=== PATIENT | female | born 1995 | race Hispanic/Latino ===

== ENCOUNTER 2022-02-28 16:48 | Inpatient (IN) | payer MEDICAID, SELFPAY ==
[~2022-02-28 16:48] MED LIST: Bupivacaine/Epinephrine 0.25% 30 ML VIAL ONE; ePHEDrine Sulfate 50 MG/10 ML VIAL ONE
[2022-02-28] MEDS ORDERED: hydrALAZINE 20 MG/ML VIAL SLOW IVP PRN ×2 (17:41→19:38)
[2022-02-28] MEDS ORDERED: Docusate 100 MG CAP PO PRN (19:38)
[2022-02-28] MEDS ORDERED: Ondansetron PF 4 MG/2 ML Vial IVP PRN (19:38)
[2022-02-28] MEDS ORDERED: Lidocaine 1% (PF) 30 ML VIAL SC PRN (19:38)
[2022-02-28] MEDS ORDERED: Ibuprofen 800 MG TAB PO PRN (19:38)
[2022-02-28] MEDS ORDERED: Promethazine HCl 25 MG/ML VIAL IM PRN (19:38)
[2022-02-28] MEDS ORDERED: Misoprostol 200 MCG TAB PR PRN (19:38)
[2022-02-28] MEDS ORDERED: NS w/ Oxytocin 30 units 500 ML IV SCH ×2 (21:00)
[2022-02-28 21:05] LABS: Hemoglobin 12.2 g/dL (12.0-15.5); Mean Corpuscular HGB CONC 34.2 g/dL (32.0-36.0); Mean Corpuscular Hemoglobin 28.7 pg (27.0-33.0); Mean Platelet Volume 10.6 fl (7.4-10.4); Platelet Count 178 10x3/uL (150-450); RBC Distribution Width 14.7 % (11.5-14.5); Red Blood Cell (RBC) Count 4.25 10x6/uL (3.90-5.03); White Blood Cell (WBC) Count 10.8 10x3/uL (3.5-10.5)
[2022-02-28] MEDS: Misoprostol 100 MCG TAB VAG SCH (21:19)
[2022-02-28 22:02] LABS: SARS-CoV-2 NAA Rapid Test Not Detected (NotDetected); Syphilis Antibody Nonreactive (Nonreactive); Syphilis Antibody Index 0.05 S/CO (<1.00 Non-Reactive)
[2022-02-28 22:03] LABS: HBSAg Index 0.16 S/CO (0-0.99); Hep B Surf Ag Non-Reactive S/CO (NonReactive)
[2022-03-01] MEDS ORDERED: Fentanyl 2 mcg/Bup 0.1% Cadd 100 ML ONE (02:02)
[2022-03-01] MEDS ORDERED: Moisturizing Cream (Eucerin) 113 GM JAR TOP PRN (02:57)
[2022-03-01] MEDS ORDERED: diphenhydrAMINE 50 MG/ML VIAL IVP PRN (02:57)
[2022-03-01] MEDS ORDERED: Ondansetron PF 4 MG/2 ML Vial IVP PRN ×2 (02:57→10:00)
[2022-03-01] MEDS ORDERED: Promethazine HCl 25 MG/ML VIAL IM PRN (02:57)
[2022-03-01] MEDS ORDERED: Naloxone HCl 0.4 mg/ml Vial IVP PRN ×2 (02:57)
[2022-03-01] MEDS ORDERED: Lactated Ringer's 500 ML IV PRN (02:57)
[2022-03-01] MEDS ORDERED: Acetaminophen 325 MG TAB PO PRN (02:57)
[2022-03-01] MEDS ORDERED: Fentanyl 2 mcg/Bupivacaine 0.1% Cassette 100 ML EPIDURAL SCH (03:00)
[2022-03-01] MEDS ORDERED: Communication Order-Pharmacy FS SCH (03:00)
[2022-03-01] MEDS: ePHEDrine Sulfate 50 MG/10 ML VIAL SLOW IVP PRN ×2 (03:30→03:55)
[2022-03-01] MEDS ORDERED: Lanolin Ointment 7 GM TUBE TOP PRN (10:00)
[2022-03-01] MEDS ORDERED: Bisacodyl 10 MG SUPP PR PRN (10:00)
[2022-03-01] MEDS ORDERED: Misoprostol 200 MCG TAB VAG PRN (10:00)
[2022-03-01] MEDS ORDERED: Boostrix 0.5 ML (Tdap) VIAL (>/=7 yrs of age) IM ONE (10:00)
[2022-03-01] MEDS ORDERED: Milk Of Magnesia 30 ML UDCUP PO PRN (10:00)
[2022-03-01] MEDS ORDERED: NS w/ Oxytocin 30 units 500 ML IV SCH (10:00)
[2022-03-01] MEDS ORDERED: Preparation H Ointment 28 GM TUBE PR PRN (10:00)
[2022-03-01] MEDS ORDERED: Benzocaine-Menthol 82.5 ML CAN TOP PRN (10:00)
[2022-03-01] MEDS ORDERED: hydrALAZINE 20 MG/ML VIAL SLOW IVP PRN (10:00)
[2022-03-01] MEDS ORDERED: diphenhydrAMINE 25 MG CAP PO PRN (10:00)
[2022-03-01] MEDS ORDERED: Methylergonovine 0.2 MG/ML VIAL IM PRN (10:00)
[2022-03-01] MEDS ORDERED: Ferrous Sulfate 325 MG TAB PO SCH (10:15)
[2022-03-01] MEDS ORDERED: Prenatal Vitamin 1 TAB PO SCH (10:15)
[2022-03-01] MEDS ORDERED: Docusate 100 MG CAP PO SCH (10:15)
[2022-03-01] MEDS: Ibuprofen 800 MG TAB PO SCH ×2 (13:25→22:12)
[2022-03-01] MEDS: Prenatal Vitamin 1 TAB PO SCH (13:25)
[2022-03-01] MEDS: Ferrous Sulfate 325 MG TAB PO SCH (16:48)
[2022-03-01] MEDS: Docusate 100 MG CAP PO SCH (22:11)
[2022-03-01] MEDS: Misoprostol 100 MCG TAB VAG SCH (22:39)
[2022-03-02] MEDS: Ibuprofen 800 MG TAB PO SCH ×3 (05:08→21:59)
[2022-03-02] MEDS: Docusate 100 MG CAP PO SCH ×2 (08:34→21:59)
[2022-03-02] MEDS: Ferrous Sulfate 325 MG TAB PO SCH ×2 (11:05→17:46)
[2022-03-02 12:09] VITALS: BMI 23.8
[2022-03-03] MEDS: Ibuprofen 800 MG TAB PO SCH ×2 (04:57→13:47)
[2022-03-03 07:53] VITALS: BP 104/57; TEMP 98
[2022-03-03] MEDS: Docusate 100 MG CAP PO SCH (08:05)
[2022-03-03] MEDS: Prenatal Vitamin 1 TAB PO SCH (08:05)
[2022-03-03] MEDS: Ferrous Sulfate 325 MG TAB PO SCH (08:06)
== END 2022-03-03 17:35 | disposition home or self-care (01) | DRG 806 ==
LOC: CSHLD/OP 16:48 → CSHLD 20:57 → CSHPP 03-01 09:15
PROVIDERS: ADMIT Family Medicine; ATTEND Family Medicine
PROC: 10E0XZZ Delivery of Products of Conception, External Approach (ICD-10-PCS; principal; 2022-03-01)
PROC: 0KQM0ZZ Repair Perineum Muscle, Open Approach (ICD-10-PCS; 2022-03-01)
PROC: 0UQMXZZ Repair Vulva, External Approach (ICD-10-PCS; 2022-03-01)
DX: O36.5930 Maternal care for other known or suspected poor fetal growth, third trimester, not applicable or unspecified (principal); O99.354 Diseases of the nervous system complicating childbirth; Z37.0 Single live birth; Z3A.40 40 weeks gestation of pregnancy; Z20.822 Contact with and (suspected) exposure to COVID-19; G43.909 Migraine, unspecified, not intractable, without status migrainosus; D23.5 Other benign neoplasm of skin of trunk; O99.892 Other specified diseases and conditions complicating childbirth; O76 Abnormality in fetal heart rate and rhythm complicating labor and delivery; O70.1 Second degree perineal laceration during delivery
CPT/HCPCS: 51702; 76815; 76819; 85027; 86780; 86850; 86900; 86901; 87340; 88307; 99285; U0002